=== PATIENT | male | born 2000 | race Two or more races ===

== ENCOUNTER 2022-02-24 04:17 | Emergency (ER) | payer MEDICAID, OTHER ==
[~2022-02-24] VITALS: Ht 180.3 cm; Wt 63.5 kg
[2022-02-24 04:17] VITALS: BP 115/67
[2022-02-24] MEDS ORDERED: IBUPROFEN 600 MG TAB PO ONE (07:15)
[2022-02-24] MEDS ORDERED: IBUP600T27 PO (07:25)
[2022-02-24] MEDS ORDERED: CEPH500C PO (07:34)
== END 2022-02-24 07:34 | disposition home or self-care (01) ==
LOC: ER 04:17
DX: S20.211A Contusion of right front wall of thorax, initial encounter (principal); V43.52XA Car driver injured in collision with other type car in traffic accident, initial encounter; Y93.89 Activity, other specified; Y92.89 Other specified places as the place of occurrence of the external cause; Y99.8 Other external cause status
CPT/HCPCS: 71101